=== PATIENT | male | born 1985 | race Two or more races ===

== ENCOUNTER 2019-12-06 13:01 | Emergency (ER) | payer OTHER, SELFPAY ==
[~2019-12-06] VITALS: Ht 165.1 cm; Wt 95.0 kg
--- NOTE | 2019-12-06 13:10 | NUR ---
EKG IN TRIAGE
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
[2019-12-06] MEDS ORDERED: MAALOX/HYOSCYAMINE/LIDOCAINE 45 ML BTL ONE (13:44)
[2019-12-06] MEDS ORDERED: MAALOX/HYOSCYAMINE/LIDOCAINE 45 ML BTL PO ONE (14:00)
--- NOTE | 2019-12-06 14:17 | NUR ---
TO RADIOLOGY PER SIDNEY
[2019-12-06 15:26] VITALS: BP 125/73
== END 2019-12-06 15:28 | disposition home or self-care (01) ==
LOC: ED 15:11
DX: K29.00 Acute gastritis without bleeding (principal); R07.9 Chest pain, unspecified; K59.00 Constipation, unspecified; F17.290 Nicotine dependence, other tobacco product, uncomplicated
CPT/HCPCS: 71046; 93005; 99283